=== PATIENT | female | born 1990 | race Caucasian/White ===

== ENCOUNTER 2016-10-31 09:35 | Emergency (ER) | payer OTHER ==
[~2016-10-31] VITALS: Wt 109.0 kg
[2016-10-31] MEDS ORDERED: AZIT250T94 PO (12:09)
[2016-10-31] MEDS ORDERED: IBUP-1542 PO (12:10)
[2016-10-31] MEDS ORDERED: CETI10CA PO (12:10)
[2016-10-31] MEDS ORDERED: D-ME473S18 PO (12:10)
[2016-10-31] MEDS ORDERED: FLUT9.9S NASAL (12:10)
--- NOTE | 2016-10-31 12:15 | ERD ---
ER Documentation Chief Complaint Date/Time DATE: 10/31/16 TIME: 12:11 Chief Complaint COUGH AND CONGESTION FOR THE PAST FEW DAYS. SORE THROAT WITH INT FEVERS HPI This is a 18-year-old female who presents to the emergency department today complaining of cough, congestion, sore throat and intermittent fevers for the past week. States she has tried NyQuil with no improvement in symptoms. States that she keeps being sent home from class because of her cough. States the cough is worse at night. Denies any nausea vomiting or diarrhea. ROS All systems reviewed and are negative except as per history of present illness. Medications Home Meds Active Scripts Ibuprofen* (Motrin*) 600 Mg Tab, 600 MG PO Q6, #30 TAB Prov:THOMAS MILES PA-C 10/31/16 Dextromethorphan Hb-Promethazine Hcl (Promethazine DM Syrup) 473 Ml Syrup, 5 ML PO Q6H Y for COUGH, #4 OZ Prov:THOMAS MILES PA-C 10/31/16 Fluticasone Propionate (Flonase Allergy Relief) 9.9 Ml Christmas.susp, 2 SPRAY NASAL DAILY, #1 BOTTLE TO EACH NOSTRIL Prov:THOMAS MILES PA-C 10/31/16 Cetirizine Hcl* (Zyrtec*) 10 Mg Capsule, 10 MG PO DAILY, #14 TAB.CHEW Prov:THOMAS MILES PA-C 10/31/16 Azithromycin* (Zithromax*) 250 Mg Tablet, 250 MG PO .ZPACK DIRECTED, #6 TAB TAKE 500 MG (2 TABS) THE FIRST DAY THEN 250 MG (1 TAB) DAYS 2-5 Prov:THOMAS MILES PA-C 10/31/16 PMhx/Soc Medical and Surgical Hx: pt denies Medical Hx History of Surgery: Yes (csect x3, 1 ) Hx Alcohol Use: No Hx Substance Use: No Hx Tobacco Use: No Physical Exam Vitals Vital Signs Date Time Temp Pulse Resp B/P Pulse Ox O2 Delivery O2 Flow Rate FiO2 10/31/16 09:38 98.6 87 20 140/82 98 Physical Exam Const: No acute distress Head: Atraumatic Eyes: Normal Conjunctiva ENT: Ears TMs normal. Nose no drainage. Throat no erythema no exudate Neck: Full range of motion..~ No meningismus. Resp: Clear to auscultation bilaterally. No absent breath sounds. No wheezing. Cardio: Regular rate and rhythm, no murmurs Abd: Soft, non tender, non distended. Normal bowel sounds Skin: No petechiae or rashes Neur: Awake and alert Psych: Normal Mood and Affect Procedures/MDM This is a 18-year-old female who presents the emergency department today with fever cough, congestion, and sore throat for the past couple of days. Patient physical exam is benign however given that the patient has had her symptoms for the past week and her cough is her primary complaint with the patient a prescription for azithromycin to treat possible bronchitis. I do not feel the patient requires a chest x-ray at this time. She is afebrile here in the emergency department. Her oxygen saturation 98%. She is not tachycardic. Low suspicion for PE, pneumonia, abscess, pneumothorax. Patient will also be given a prescription for promethazine, Zyrtec and Flonase to treat possible allergic rhinitis versus viral URI as her cough is worse at night.. I have low suspicion for strep pharyngitis, peritonsillar abscess, retropharyngeal abscess, otitis media, sinusitis, abscess, meningitis, sepsis, or other acute infectious bacterial process. At this time the patient is stable for discharge and outpatient management. They should follow up with their PCP in the next 1-2. They may return to the emergency department sooner if symptoms persist or worsen. Patient understood and agreed with the plan. Departure Diagnosis: Primary Impression: URI (upper respiratory infection) URI type: unspecified URI Qualified Code: J06.9 - Upper respiratory tract infection, unspecified type Condition: Fair Patient Instructions: Preventing Common Respiratory Infections Referrals: COMMUNITY CLINICS YOU HAVE RECEIVED A MEDICAL SCREENING EXAM AND THE RESULTS INDICATE THAT YOU DO NOT HAVE A CONDITION THAT REQUIRES URGENT TREATMENT IN THE EMERGENCY DEPARTMENT. FURTHER EVALUATION AND TREATMENT OF YOUR CONDITION CAN WAIT UNTIL YOU ARE SEEN IN YOUR DOCTORS OFFICE WITHIN THE NEXT 1-2 DAYS. IT IS YOUR RESPONSIBILITY TO MAKE AN APPOINTMENT FOR FOLOW-UP CARE. IF YOU HAVE A PRIMARY DOCTOR --you should call your primary doctor and schedule an appointment IF YOU DO NOT HAVE A PRIMARY DOCTOR YOU CAN CALL OUR PHYSICIAN REFERRAL HOTLINE AT IF YOU CAN NOT AFFORD TO SEE A PHYSICIAN YOU CAN CHOSE FROM THE FOLLOWING [facility] [id number] [facility]. [facility] [address] [facility]. [facility] [address] [facility]. [facility] [address] [facility]. [facility] [phone] [id number] [facility]. [facility] [address] Additional Instructions: Call your primary care doctor TOMORROW for an appointment during the next 1-2 days.See the doctor sooner or return here if your condition worsens before your appointment time. Take medications as prescribed THOMAS MILES PA-C Oct 31, 2016 12:15
[2016-10-31 12:35] VITALS: BP 125/80; PULSE 77; RESP 20; TEMP 98.6
== END 2016-10-31 12:35 | disposition home or self-care (01) ==
LOC: FTE 09:35
DX: J06.9 Acute upper respiratory infection, unspecified (principal)
CPT/HCPCS: 99284

== ENCOUNTER 2017-12-24 19:22 | Emergency (ER) | END 2017-12-24 19:33 | disposition left against medical advice (07) ==

== ENCOUNTER 2018-02-02 23:00 | Inpatient (IN) | END 2018-02-06 11:35 | disposition home or self-care (01) | DRG 765 ==